=== PATIENT | female | born 1995 | race Two or more races ===

== ENCOUNTER 2017-01-05 15:49 | Emergency (ER) | payer OTHER ==
[~2017-01-05] VITALS: Ht 167.6 cm; Wt 49.7 kg
[2017-01-05 15:54] VITALS: BP 109/69
== END 2017-01-05 16:32 | disposition left against medical advice (07) ==
LOC: ED 16:26
DX: K02.9 Dental caries, unspecified (principal)
CPT/HCPCS: 99281